=== PATIENT | male | born 1965 | race Caucasian/White ===

== ENCOUNTER 2016-09-18 16:02 | Emergency (ER) | payer OTHER ==
--- NOTE | 2016-09-18 16:24 | CPEKG ---
Heart Rate: 98 RR Interval: 612 P-R Interval: 180 QRSD Interval: 96 QT Interval: 368 QTC Interval: 470 P Dyess: 28 QRS Dyess: 24 T Wave Dyess: 25 EKG Severity - OTHERWISE NORMAL ECG - EKG Impression: SINUS TACHYCARDIA EKG Impression: VENTRICULAR PREMATURE COMPLEX Electronically Signed By: Sindy Oconnor 18-Sep-2016 22:03:24
--- NOTE | 2016-09-18 16:29 | EDPHY ---
H & P Time Seen by Provider: 09/18/16 16:16 HPI/ROS: CHIEF COMPLAINT: I [place] HISTORY OF PRESENT ILLNESS: Patient is a 51-year-old male who presents to the emergency room with low back pain. The patient states [place] was [place] 1988 [place] was [place] by an [employer] 14. Patient states he is scheduled for surgery [facility] the [facility] and has an appt February 22 for surgical repair. Patient states I am a drunk. He states he takes alcohol to treat the pain. He is on no pain medications or treatments for his low back pain. The patient has chronic low back pain. It is primarily in the left lower back. He has no incontinence of urine or stool. No fevers or chills. REVIEW OF SYSTEMS: My complete review of systems is negative except as mentioned in the HPI. Past Medical/Surgical History: Includes coronary artery disease, obstructive sleep apnea, obesity, hypertension , hyperlipidemia, depression, alcohol abuse, chronic back pain, diabetes, headache Past surgical history: Includes cardiac catheterization with stent in 2014. Foot surgery. Family history: Positive for coronary artery disease. His father of a heart attack at 42. Social history: The patient drinks heavily. He denies drugs or alcohol. He does not smoke. Smoking Status: Current every day smoker Physical Exam: Vitals noted. Heart rate 99. GENERAL: No acute distress, alert. HEENT: Eyes normal to inspection, normal pharynx, no signs of dehydration. NECK: No thyromegaly, no lymphadenopathy, supple. RESPIRATORY: Clear to auscultation bilaterally, no rales, rhonchi or wheezing. CVS: Regular rate and rhythm, no rubs, murmurs, or gallops. ABDOMEN: Soft, nontender, nondistended, no organomegaly. BACK: Normal to inspection, no CVA tenderness. Patient has no spinal step-off or deformity. He has mild left lateral lumbar tenderness to palpation. No SI joint tenderness to palpation. Negative leg raise bilaterally. SKIN: Normal color, no rash, warm, dry. No pallor. EXTREMITIES: No pedal edema, no calf tenderness, no Homans sign or cords, no joint swelling. NEURO/PSYCH: Alert and oriented, normal mood and affect, normal motor sensory exam. Constitutional: Initial Vital Signs Temperature (C) 36.5 C 09/18/16 16:07 Heart Rate 99 09/18/16 16:07 Respiratory Rate 16 09/18/16 16:07 Blood Pressure 182/106 H 09/18/16 16:07 O2 Sat (%) 95 09/18/16 16:07 O2 Delivery Mode Room Air Allergies/Adverse Reactions: No Known Allergies Allergy (Unverified 05/29/16 06:25) Home Medications: Medication Instructions Recorded Aspirin EC [Aspirin EC 81 mg (*)] 81 mg PO DAILY 07/12/16 Atorvastatin Calcium [Lipitor 40 40 mg PO HS 07/12/16 mg (*)] Fluoxetine HCl [Prozac 40 mg] 40 mg PO DAILY 07/12/16 Metoprolol Succinate Xr [Toprol Xl 25 mg PO DAILY 07/12/16 50 mg (*)] Multivitamins [Multivitamin (*)] 1 each PO DAILY 07/12/16 buPROPion [Wellbutrin 100mg (*)] 100 mg PO DAILY 07/12/16 traZODone [traZODONE 100MG (*)] 50 mg PO HS PRN 07/12/16 Cyclobenzaprine [Flexeril] 5 mg PO TID #11 tab 09/18/16 oxyCODONE/APAP 5/325 [Percocet 1 - 2 tab PO Q4PRN PRN #11 tab 09/18/16 5/325 (*)] Medical Decision Making ED Course/Re-evaluation: In the emergency department I discussed possible etiologies with the patient. I reviewed the patient's previous medical record. An EKG was performed on his arrival from triage. EKG shows normal sinus rhythm, normal rate, normal axis, normal intervals. The PC. There are no ST or T-wave abnormalities. EKG is normal as interpreted by me. Patient was given Toradol 30 mg IV for low back pain. His previous creatinine was 0.6. He is given normal saline 1 L IV for hydration. He was given Percocet 2 tablets orally for pain control. I had case management see the patient for placement for possible alcohol detoxification. 1800: After evaluation the family independence case manager felt she could find placement. Patient is awaiting results of her phone calls. Differential Diagnosis: My differential includes but is not limited to low back pain, low back strain, fracture, disc herniation, cauda equina syndrome. I do not feel patient has ACS or acute TX. I do not feel this is secondary to dissection, aneurysm or thrombus. - Data Points Medications Given: Discontinued Medications Sodium Chloride (Ns) 1,000 mls @ 3,000 mls/hr IV ONCE ONE Stop: 09/18/16 16:56 Last Admin: 09/18/16 16:39 Dose: 1,000 mls Ketorolac Tromethamine (Toradol) 30 mg IVP EDNOW ONE Stop: 09/18/16 16:38 Last Admin: 09/18/16 16:40 Dose: 30 mg Oxycodone/Acetaminophen (Percocet 5/325) 2 tab PO EDNOW ONE Stop: 09/18/16 16:39 Last Admin: 09/18/16 16:40 Dose: 2 tab Departure - Departure Disposition: Home, Routine, Self-Care Clinical Impression: Low back pain, Alcohol abuse Condition: Good Instructions: Abuse of Alcohol (ED), Acute Low Back Pain (ED) Additional Instructions: Return with increasing pain, loss of urine or stool, fever or any other concerns. Do not take your pain medication with alcohol intoxication. Referrals: Mary Obrien MD [Medical Doctor] - 5-7 days, if not improved Prescriptions: Cyclobenzaprine [Flexeril] 5 mg PO TID #11 tab oxyCODONE/APAP 5/325 [Percocet 5/325 (*)] 1 - 2 tab PO Q4PRN PRN #11 tab PRN Reason: For Moderate To Severe Pain
[2016-09-18] MEDS ORDERED: KETOROLAC 30 MG/1 ML SDV ONE (16:30)
[2016-09-18] MEDS ORDERED: OXYCODONE/APAP 5/325 TAB ONE ×2 (16:30→16:31)
[2016-09-18] MEDS ORDERED: NS 1,000 ML IV ONE (16:37)
[2016-09-18] MEDS ORDERED: KETOROLAC 30 MG/1 ML SDV IVP ONE (16:37)
[2016-09-18] MEDS ORDERED: OXYCODONE/APAP 5/325 TAB PO ONE (16:38)
[2016-09-18 18:38] VITALS: BP 174/100; PULSE 95; RESP 18; TEMP 99.1; O2SAT 20
== END 2016-09-18 18:38 | disposition home or self-care (01) ==
DX: M54.5 Low back pain (principal); F10.10 Alcohol abuse, uncomplicated; I10 Essential (primary) hypertension; E11.9 Type 2 diabetes mellitus without complications; F17.200 Nicotine dependence, unspecified, uncomplicated; Z79.82 Long term (current) use of aspirin; Z95.5 Presence of coronary angioplasty implant and graft
CPT/HCPCS: 96374; J1885